=== PATIENT | male | born 1960 | race Caucasian/White ===

== ENCOUNTER 2017-09-20 02:25 | Emergency (ER) | payer BC ==
[~2017-09-20] VITALS: Ht 170.2 cm; Wt 84.8 kg
[2017-09-20 02:45] VITALS: BP 133/79
[2017-09-20] MEDS ORDERED: KETOROLAC TROMETHAMINE INJ 30 MG/ML VIAL ONE ×2 (02:58→03:05)
[2017-09-20] MEDS ORDERED: KETOROLAC TROMETHAMINE INJ 60 MG/2 ML VIAL IM ONE (03:00)
== END 2017-09-20 03:32 | disposition home or self-care (01) ==
LOC: ER 02:25
DX: M54.41 Lumbago with sciatica, right side (principal); M54.42 Lumbago with sciatica, left side; Z87.19 Personal history of other diseases of the digestive system; Z88.0 Allergy status to penicillin
CPT/HCPCS: A4606; J1885; Z7610